=== PATIENT | male | born 1935 | race Caucasian/White ===

== ENCOUNTER 2020-05-07 22:12 | Emergency (ER) | payer MEDICARE, OTHER ==
[~2020-05-07] VITALS: Ht 172.7 cm; Wt 108.9 kg
--- NOTE | 2020-05-07 22:43 | NUR ---
PT BIB DAUGHTER IN LAW FOR POSTERIOR HEAD LACERATION S/O SLIP AND FALL. -KO. -TAB. MD AT BEDSIDE. EMT AT BEDSIDE WELL FOR WOUND CARE. PT ON MONITOR AND PULSE OX. VSS. NO ACUTE DISTRESS NOTED.
[2020-05-07] MEDS ORDERED: TDAP [DIPH/PERTUSSIS/TET] 0.5 ML VIAL IM ONE (23:43)
[2020-05-07 23:53] VITALS: BP 139/76
--- NOTE | 2020-05-07 23:53 | NUR ---
PT WHEELED OUT OF E.D. SPOKE TO FAMILY REGARDING PLAN OF CARE. PT AMBULATORY WITH STEADY GAIT. VSS.
[2020-05-08] MEDS ORDERED: TDAP [DIPH/PERTUSSIS/TET] 0.5 ML VIAL IM ONE
== END 2020-05-07 23:54 | disposition home or self-care (01) ==
LOC: ER 22:18
DX: S01.01XA Laceration without foreign body of scalp, initial encounter (principal); S09.8XXA Other specified injuries of head, initial encounter; I10 Essential (primary) hypertension; Z86.73 Personal history of transient ischemic attack (TIA), and cerebral infarction without residual deficits; W01.0XXA Fall on same level from slipping, tripping and stumbling without subsequent striking against object, initial encounter; Y93.89 Activity, other specified; Y92.89 Other specified places as the place of occurrence of the external cause; Y99.8 Other external cause status
CPT/HCPCS: 70450-TC; 90715

== ENCOUNTER 2020-05-14 20:47 | Emergency (ER) | payer MEDICARE, OTHER ==
[~2020-05-14] VITALS: Ht 172.7 cm; Wt 108.9 kg
[2020-05-14 20:57] VITALS: BP 152/72
== END 2020-05-14 21:10 | disposition home or self-care (01) ==
LOC: ER 20:50
DX: S01.01XD Laceration without foreign body of scalp, subsequent encounter (principal); I10 Essential (primary) hypertension; Z86.73 Personal history of transient ischemic attack (TIA), and cerebral infarction without residual deficits; X58.XXXD Exposure to other specified factors, subsequent encounter